=== PATIENT | male | born 1965 | race Caucasian/White ===

== ENCOUNTER 2022-07-27 07:31 | Outpatient (CLI) | payer BC, SELFPAY | END 2022-07-27 07:32 | disposition home or self-care (01) | LOC: NFLDREF 07-28 10:40 | PROVIDERS: PCP Family Medicine; Visit Provider Family Medicine | DX: E78.5 Hyperlipidemia, unspecified (principal); Z12.5 Encounter for screening for malignant neoplasm of prostate; R97.20 Elevated prostate specific antigen [PSA]; N40.0 Benign prostatic hyperplasia without lower urinary tract symptoms | CPT/HCPCS: 80053; 80061; 84153 ==

== ENCOUNTER 2022-09-29 06:17 | Day surgery (SDC) | payer BC, SELFPAY ==
[2022-09-29] VITALS (13 sets, daily range): BP systolic 118–149; BP diastolic 73–98; PULSE 59–81; RESP 12–16; TEMP 36.5–37.2; O2SAT 94–98; BMI 22.7
[2022-09-29] MEDS: LACTATED RINGERS 1000 ML 1,000 ML 100 ML IV ×2 (06:50→08:54)
[2022-09-29] MEDS: SODIUM CHLORIDE 0.9 % (FLUSH) 10 ML SYRINGE IVF (06:50)
[2022-09-29] MEDS: CEFAZOLIN 1 GM inj IVP (07:49)
--- NOTE | 2022-09-29 08:27 | W.ANESCHARGE ---
Anesthesia Charges Start Date/Time Anesthesia Start Date: 09/29/22 Anesthesia Start Time: 07:37 Stop Date/Time Anesthesia Stop Date: 09/29/22 Anesthesia Stop Time: 09:29
[2022-09-29] MEDS: BUPIVACAINE 0.25% 30 ML INJECTION (09:02)
--- NOTE | 2022-09-29 09:14 | PM.GSPRC ---
Operative Note Date of procedure: 09/29/22 Pre-op diagnosis: Bilateral inguinal hernia Post-op diagnosis: Same Type of Procedure: Laparoscopic bilateral inguinal hernia repair with mesh Indications: The patient is a 56-year-old male with a symptomatic left inguinal hernia. This has been interfering with his activities. He on exam in the office was found to have a right-sided hernia as well. We did discuss risks and benefits of repair of 1 or both sides and he elected to proceed with bilateral hernia repair. Procedure Description: After discussing the risks and benefits of the procedure, the patient signed informed consent.? The operative site was marked and the patient was brought to the operating room and placed on the operating table in supine position.? Care was taken to pad the patient's pressure points.?? The patient was then intubated by anesthesia.?? The operative site was then prepped and draped in the usual sterile fashion.? A time-out was then performed. A curvilinear incision was made below the umbilicus. Dissection was carried down to subcutaneous tissue until the anterior rectus fascia was encountered. This was incised off the midline on the left. The rectus muscle fibers were then retracted exposing the posterior fascia. A port with a dissecting balloon was then introduced into the pre-preperitoneal space. This was inflated under direct vision. The balloon was deflated, removed, and a 10 mm working port was placed. The space was insufflated and a 10 mm 30-degree scope was then advanced into the space. Two 5 mm ports were placed in the midline under direct vision. Dissection began on the left side. Aristides's ligament and the pubic bone were exposed medially. Following this, dissection was carried out laterally. A direct defect was noted. This was reduced completely. Attention was turned to the internal ring. The peritoneum was adherent to the cord structures however there was no hernia sac protruding through the internal ring. I did not identify a cord lipoma. The peritoneum was dissected free of the cord structures and dissection was taken out laterally to create a space for the mesh. A small hole in the peritoneum which was created during dissection was closed with clips. I then turned my attention to the right side. Similarly Aristides's ligament and pubic bone were exposed medially. I took my dissection laterally to the lateral pelvic sidewall. I encountered a small indirect hernia as well as a very small direct hernia. The direct hernia was reduced and the hernia sac was dissected off of the cord structures. A small tear in the hernia sac was closed with clips. Now having created sufficient space for mesh placement, I obtained a piece of large Bard 3DMax mesh for the right and left side. And positioned them just overlapping in the middle with the markers pointed medially. Tacks were then used to secure the mesh medially at Aristides's ligament as well as anteriorly and superiorly to this given the direct hernia. An additional tack was placed laterally with care to avoid the epigastric vessels and stay above the inguinal ligament. Once this was completed the sac was placed on top of the mesh and the preperitoneal space desufflated under direct vision to ensure the mesh laid flat. 10 mL of 0.5% Marcaine were instilled into the preperitoneal space through a port. The ports were removed. The fascia from the infraumbilical port was closed with 0 Vicryl. The skin incisions were closed with absorbable subcuticular suture. Sterile dressings were then applied. The scrotum was examined to ensure that both testicles were down. Instrument sponge and needle counts were correct at the end of the case. The patient was then woken and transported to the recovery area in stable condition. ? The patient tolerated the procedure well. Findings: Left-sided direct inguinal hernia Right-sided pantaloon hernia Implants: Bilateral large Bard 3DMax mesh Anesthesia: GETA Surgeon: Tami Montiel MD Estimated blood loss (mL): 5 Condition: stable Disposition: PACU
--- NOTE | 2022-09-29 09:31 | W.ANESCHARGE ---
Anesthesia Charges Start Date/Time Anesthesia Start Date: 09/29/22 Anesthesia Start Time: 07:37 Stop Date/Time Anesthesia Stop Date: 09/29/22 Anesthesia Stop Time: 09:29
--- NOTE | 2022-09-29 10:42 | SUR.PHASEII ---
Moderate bright red sanguinous drainage through second (center) incision on entry to Phase II. Rechecked and no change. Reinforced with additional gauze.
[2022-09-29] MEDS: HYDROCODONE-ACETAMIN 5-325 MG 1 TAB PO (11:31)
== END 2022-09-29 12:18 | disposition home or self-care (01) ==
PROVIDERS: PCP Family Medicine; Visit Provider Surgery
PROC: (CPT 49650; principal; 2022-09-29 07:30)
DX: K40.20 Bilateral inguinal hernia, without obstruction or gangrene, not specified as recurrent (principal)
CPT/HCPCS: 49650; 00830; 00860; A9270; C1781; J0330; J0690; J1100; J1885; J2250; J2405; J2704; J2710; J3010; J3490; J7120

== ENCOUNTER 2022-10-13 07:16 | Outpatient (CLI) | payer BC, SELFPAY | END 2022-10-13 07:17 | disposition home or self-care (01) | LOC: OP CLINIC 07:16 | PROVIDERS: PCP Family Medicine; Visit Provider Surgery | DX: Z12.11 Encounter for screening for malignant neoplasm of colon (principal); K63.5 Polyp of colon | CPT/HCPCS: 45385; 88305; J2250; J3010 ==

== ENCOUNTER 2023-01-18 08:15 | Outpatient (RCR) | payer BC, SELFPAY | END 2023-03-28 10:31 | disposition home or self-care (01) | PROVIDERS: PCP Family Medicine; Visit Provider Orthopaedic Surgery Sports Medicine | DX: M75.82 Other shoulder lesions, left shoulder (principal); G25.89 Other specified extrapyramidal and movement disorders; M25.512 Pain in left shoulder; M25.612 Stiffness of left shoulder, not elsewhere classified; Z51.89 Encounter for other specified aftercare | CPT/HCPCS: 97110; 97140; 97161 ==

== ENCOUNTER 2023-08-16 08:39 | Outpatient (CLI) | payer BC, SELFPAY ==
--- OUTSIDE RECORDS SUMMARY | 2023-08-17 12:57 | XMS_ITS | Clinical Summary ---
Author Name Unknown Organization [email or web address] Address [place], [place] [address] Care Team Providers Care Farm Management Supervisor Name Role Phone Pcp, No Primary Care Provider Unavailabl e Social History Tobacco Use Types Packs/Day Years Used Date Smoking Tobacco: Never Assessed Sex and Gender Information Value Date Recorded Sex Assigned at Not on file Gender Identity Not on file Sexual Orientation Not on file Plan of Treatment Health Maintenance Due Date Last Done Comments Tdap 1977 Depression screening for age 12+ 1978 HIV for age 15-65 1981 BMI (ht and wt on same day) for age 18+ 1984 Hepatitis C screening for age 18-79 1984 Tetanus booster 1986 Colonoscopy through age 75 11/29/2011 Lipids for age 45-75 11/29/2011 Zoster (shingles) series for age 50+ (1 of 2) 2016 COVID-19 vaccine series (2022-24 season) 2022 03/08/2022, 03/09/2021, 08/18/2020, Additional history exists Influenza for age 50-64 12/17/2023 Pneumococcal series for age 6-64 Aged Out No longer eligible based on patient's age to complete this topic Care Teams Farm Management Supervisor Relationship Specialty Start Date End Date Pcp, No . PCP - General 09/27/22
== END 2023-08-16 08:40 | disposition home or self-care (01) ==
LOC: NFLDREF 08-17 12:53
PROVIDERS: PCP Family Medicine; Referring Provider Family Medicine; Visit Provider Family Medicine
DX: E78.5 Hyperlipidemia, unspecified (principal); R97.20 Elevated prostate specific antigen [PSA]; Z12.5 Encounter for screening for malignant neoplasm of prostate; Z13.228 Encounter for screening for other metabolic disorders
CPT/HCPCS: 80053; 80061; G0103

== ENCOUNTER 2023-10-04 09:00 | Outpatient (RCR) | payer BC, SELFPAY | END 2024-01-08 08:45 | disposition home or self-care (01) | PROVIDERS: PCP Family Medicine; Visit Provider Family Medicine | DX: M25.812 Other specified joint disorders, left shoulder (principal); Z51.89 Encounter for other specified aftercare | CPT/HCPCS: 97110; 97140; 97161 ==

== ENCOUNTER 2024-05-07 08:15 | Outpatient (CLI) | payer BC, SELFPAY ==
--- NOTE | 2024-05-07 08:15 | CRLHL7_ITS ---
For Patients: As a result of the Century Cures Act, medical imaging exams and procedure reports are released immediately into your electronic medical record. You may view this report before your referring provider. If you have questions, please contact your health care provider. INDICATION: Localized swelling, mass, inferior chest. TECHNIQUE: Focused ultrasound of the patient`s lump in the inferior right chest wall. Grayscale and color Doppler images. FINDINGS: Ill-defined 4.1 x 1.3 x 2.4 cm mass in the inferior right chest corresponding to the patient`s lump. This appears to be associated with the skin. Tissue is heterogeneous occluding hyperechoic elements and possibly some edema. Increased color flow within the area. Findings are nonspecific but this appears to be at least partially epidermal process. No drainable fluid collection. Impression: Nonspecific, hyperemic and somewhat edematous mass associated with the skin and immediate subcutaneous tissues. Dictated by Angelo John MD @ 05/07/2024 1:40:06 PM (Electronically Signed)
== END 2024-05-07 08:16 | disposition home or self-care (01) ==
LOC: US 08:16
PROVIDERS: PCP Family Medicine; Visit Provider Surgery
DX: R22.9 Localized swelling, mass and lump, unspecified (principal)
CPT/HCPCS: 76604

== ENCOUNTER 2024-06-06 06:13 | Day surgery (SDC) | payer BC, SELFPAY ==
--- OUTSIDE RECORDS SUMMARY | 2024-06-06 06:16 | XMS_ITS | Clinical Summary ---
Author Organization [facility] Address [address] [place] [id number] Care Team Providers Care Bit Shaver Name Role Phone Pcp, No Primary Care Provider Unavailabl e Social History Tobacco Use Types Packs/Day Years Used Date Smoking Tobacco: Never Assessed Sex and Gender Information Value Date Recorded Sex Assigned at Not on file Legal Sex Male 5:44 AM [employer] Gender Identity Not on file Sexual Orientation Not on file Plan of Treatment Health Maintenance Due Date Last Done Comments Tdap 1977 Depression screening for age 12+ 1978 HIV for age 15-65 1981 BMI (ht and wt on same day) for age 18+ 1984 Hepatitis C screening for ag e 18-79 1984 Tetanus booster 1986 Colonoscopy through age 75 11/29/2011 Lipids for age 45-75 11/29/2011 Pneumococcal series for age 50+ (1 of 1 - PCV) 2016 Zoster (shingles) series for age 50+ (1 of 2) 2016 COVID-19 vaccine series ( season) 2023 03/08/2022, 03/09/2021, 08/18/2020, Additional history exists Influenza for age 50-64 12/17/2023 Insurance [facility] Care Teams Bit Shaver Relationship Specialty Start Date End Date Pcp, No . PCP - General 09/27/22
--- OUTSIDE RECORDS SUMMARY | 2024-06-06 06:16 | XMS_ITS | Data Portability ---
Author Organization [place] [facility] Address [address] [place] [address] Assessment No assessment recorded. Plan of Treatment Reminders Order Date Submit Date Provider Last Modified By Organization Details Last Modified Time Details Appointments None recorded. Lab urinalysis , dipstick 2022 023 [facility], [address], [address], [place], [address], 3 12:13:55 Referral None recorded. Procedures bladder scan (PROC) 2022 023 [facility], [address], [address], [place], [address], 3 12:13:16 Surgeries None recorded. Imaging None recorded. Medication Orders None recorded. Patient TargetsNo targets recorded. Patient Instructions Encounter Date Encounter Id Patient Instructions Last Modified By Organization Details Last Modified Time 09/01/2022 [id number] will set up for MRI prostate and call with report. [email or web address] Not available 09/01/2022 11:24:59 Reason for Referral None Reported. Results Created Date Observation Date Name Description Value Unit Range Abnormal Flag Note LastModifiedBy Organization Detail LastModifiedTime 09/02/19 23 09/01/2022 urina lysis , dipst ick Bilirubin-St atus Small Not Available [facility] [address], [place], [address], 08/30/2022 16:09:42 09/02/19 23 09/01/2022 urina lysis , dipst ick Ketones-Stat us 15 Not Available [address], [place], [address], 08/30/2022 16:09:42 09/02/19 23 09/01/2022 urina lysis , dipst ick Sp [place]-Stat us >=1.03 0 Not Available [address], [place], [address], 08/30/2022 16:09:42 09/02/19 23 09/01/2022 urina lysis , dipst ick Protein-Stat us >=9.0 Not Available [address], [place], [address], 08/30/2022 16:09:42 09/02/19 23 09/01/2022 urina lysis , dipst ick Blood-Status Negati ve Not Available [address], [place], [address], 08/30/2022 16:09:42 09/02/19 23 09/01/2022 urina lysis , dipst ick Nitrates-Sta tus negati ve Not Available [address], [place], [address], 08/30/2022 16:09:42 09/02/19 23 09/01/2022 urina lysis , dipst ick Leuko-Status Negati ve Not Available [address], [place], [address], 08/30/2022 16:09:42 09/02/19 23 09/01/2022 urina lysis , dipst ick pH-Status 5.5 Not Available [facility] [address], [place], [address], 08/30/2022 16:09:42 09/02/19 23 09/01/2022 urina lysis , dipst ick Glucose-Stat us Negati ve Not Available [facility] [address], [place], [address], 08/30/2022 16:09:42 09/02/19 23 09/01/2022 bladd er scan (PROC ) Volume (in mL) 0 Not Available [facility] [address], [place], [address], 08/30/2022 16:09:49 10/01/19 23 09/28/2022 MRI, prost ate, w/wo contr ast No observ ation record ed. [email or web address] [facility] [address], [place], [address], 09/30/2022 12:25:15 Result Notes None recorded. Problems Name Problem SNOMED Code Status Onset Date Resolution Date Notes Provider Name and Address Organization Details Recorded Time Prostate specific antigen above reference range [id number] Active 023 Darin Martinez MD [address], [place], [address], [place] [facility] 3 11:08:28 Problem Notes None recorded. Procedures Surgical History Date Name Laterality Status Provider Name and Address Organization Details Recorded Time Bladder Scan completed Darin Martinez MD [address], [place], [address], [facility] 09/01/2022 11:15:26 Imaging Results Imaging Date Name Status LastModified by Organiz ation Details LastModified Time 09/28/2022 MRI, prostate, w/wo contrast completed [id number] [facility] [address] [address] [facility] [place], [address], 09/30/2022 12:25:15 Procedure Notes None recorded. Medical Equipment None Reported. Allergies Allergen ID Allergen Name Allergen Category Reaction Reaction Severity Criticality Documentation Date Start Date Code Code System Note Provider Name and Address Organization Details Recorded Time 020138 Joselito-Tab medicatio n Not available Not available Not available 10/03/2019201160 9 RxNorm Not Available Not Available Not Available [id number] azithromy humberto medicatio n Not available Not available Not available 09/01/2022 23361 RxNorm Not Available Not Available Not Available Medications Name Sig Start Date Stop Date Status Note LastModified by Organization Details LastModified Time amlodipine 5 mg tablet TAKE 1 TABLET BY MOUTH DAILY active Not Available Not Available No t Available albuterol sulfate HFA 90 mcg/actuati on aerosol inhaler INHALE 2 PUFFS BY MOUTH EVERY 4 TO 6 HOURS NEEDED FOR SHORTNESS OF BREATH OR WHEEZING active Not Available Not Available No t Available finasteride 5 mg tablet TAKE 1 TABLET BY MOUTH EVERY DAY active Not Available Not Available No t Available Gavilyte-C 240 gram-22.72 gram-6.72 gram-5.84 gram oral solution TAKE 240ML BY MOUTH EVERY 10 MINUTES UNTIL FECAL EFFLUENT IS CLEAR 09/01 completed Not Available Not Available Not Available Vitals Date Recorded Body height Body mass index (BMI) Body weight Provider Name and Address Organization Details Last Updated DateTime 09/01/2022 177.8 cm 22.2 kg/m2 97028.82 g Darin Martinez MD [address] [place] [address], [address], [facility] 09/01/2022 11:13:16 Social History Question Answer Notes LastModified by Organizat ion Details LastModified Time Tobacco Smoking Status Never Smoker Darin Martinez MD [address] [place] [address],[address], [address], [facility] 09/01/2022 11:08:36 What Is Your Level Of Alcohol Consumption? Occasional [email or web address] Information not available 09/01/2022 What Is Your Level Of Caffeine Consumption? Occasional [email or web address] Information not available 09/01/2022 What Was The Date Of Your Most Recent Tobacco Screening? 09/01/2022 [email or web address] Information not available 09/01/2022 Sex: Unknown Functional Status None recorded. Mental Status None recorded. Family History Relationship Description Onset Age of this Age Resolved Age Notes LastModified by Organization Details LastModified Time Mother Family history of malignant neoplasm [email or web address] Not available 09/01 11:14:22 Paternal Grandfather Family history of malignant neoplasm [email or web address] Not available 09/01 11:14:22 Medical History Condition Response Other N High Blood Pressure Y Kidney Stones N Depression N Sexually Transmitted Infection N Cancer N Bleeding Disorder N Lung Disease N GERD/Acid Reflux N High Cholesterol N Diabetes N Heart Disease N Past Encounters Encounter ID Performer Location Encounter Start Date Encounter Closed Date Diagnosis/Indication Diagnosis SNOMED-CT Code Diagnosis ICD10 Code Diagnosis Note [id number] Darin Martinez MD [facility] [address] [place] [address] 09/01/2022 11:00:36 09/08/2022 12:55:50 Prostate specific antigen above reference range [id number] R97.20 Health Concerns Section Related Observation LastModified by Organization Detai ls LastModified Time None Recorded Concern Status LastModified by Organization Details LastModified Time None Recorded Advance Directives Directive None Recorded Payers Encounter Date Sequence Insurance Name Policy Number Policy Raines Covered Member ID Raines Member ID Guarantor Name 09/01/2022 1 [place] [id number] Giorgio Pino [id number] Giorgio Pino Notes Date Note Type Note Provider Name and Address Organization Details Recorded Time 09/01/2022 text/html seeing for elevated PSA, 4.21 last months, prior PSA in 2017 was normal. previously on finasteride for about a year a decade ago and 5 years ago. started having some hesitancy and slower stream again and so started finasteride with PCP on that visit. UA clear and PVR 0ml today. family hx maternal uncle might have had CaP. Darin Martinez MD [address], [place], [address], [facility] 09/01/2022 11:27:42
[2024-06-06 06:25] VITALS: BMI 22.9
[2024-06-06] MEDS: LACTATED RINGERS 500 ML 500 ML 100 ML IV (06:45)
[2024-06-06 06:56] VITALS: BP 149/91; PULSE 80; RESP 16; TEMP 36.6; O2SAT 97
[2024-06-06] MEDS: SODIUM CHLORIDE 0.9 % (FLUSH) 10 ML SYRINGE IVF (06:57)
--- NOTE | 2024-06-06 07:16 | W.PM.H&PU ---
History & Physical Update History & Physical Update H&P Reviewed and patient assessed: No changes noted
[2024-06-06] MEDS: CEFAZOLIN 2 GM INJ IVP (07:43)
[2024-06-06] MEDS: BUPIVACAINE 0.25% 30 ML INJECTION (08:02)
[2024-06-06] MEDS: LIDOCAINE 1%-EPI 1:100,000 20 ML INFILTRATI (08:02)
--- NOTE | 2024-06-06 08:20 | P.GSOP_ITS ---
Operative Note Date of procedure: 06/06/24 Pre-op diagnosis: Subcutaneous chest mass Post-op diagnosis: Same Type of Procedure: Wide local excision subcutaneous chest mass Indications: Patient is a 58-year-old male who presented to clinic with an enlarging lesion of his right chest wall. Clinical characteristics are consistent with a subc utaneous mass. Different treatment options were reviewed with recommendations for wide local excision. Risks and benefits of the surgery were discussed at length. Risks included, but were not limited to: Bleeding, infection, risk of damage to surrounding structures, risk of wound dehiscence and possible need for additional procedures. All questions and concerns were addressed with patient agreeing to proceed. Procedure Description: After discussing the risks and benefits of the procedure, the patient signed informed consent.? The operative site was marked and the patient was brought to the operating room and placed on the operating table in supine position.? Care was taken to pad the patient's pressure points.?? The patient was then given sedation by anesthesia.?? The operative site was then prepped and draped in the usual sterile fashion.? A time-out was then performed. The area was anesthetized with 0.25% Marcaine. An ill-defined 4 cm mass within the patient's subcutaneous tissue was seen on the inferior right chest wall. An elliptical incision was made around the mass to encompass it entirely as well as a rim of healthy tissue. Dissection was carried down on to underlying muscle fascia, which was included in the specimen. The mass was removed in its entirety and marked with a short stitch superior and long stitch laterally. An area of firmness was appreciated within the wound bed, this was also removed with cautery and sent with the specimen. Hemostasis was assured with electrocautery. The incision was undermined approximately 2 cm circumferentially. The elliptical incision was then closed in layers with several interrupted 2 0 Vicryl and 3-0 Vicryl. Skin was closed with a running 4-0 Monocryl stitch. Steri-Strips were applied. The resulting incision measured 10.5 cm in length. Sterile dressings were then applied. ? The patient was then woken and transported to the recovery area in stable condition. ? The patient tolerated the procedure well. Findings: Ill-defined subcutaneous mass of the inferior right chest wall, 4.1 x 1.3 x 2.4 cm in size. Anesthesia: MAC and local Surgeon: Brandi Hill MD Estimated blood loss (mL): 5 Additional Specimen Information: Chest wall mass Condition: stable Disposition: same day
[2024-06-06 08:23] VITALS: BP 106/81; PULSE 78; RESP 16; TEMP 36.4; O2SAT 99
--- NOTE | 2024-06-06 08:25 | P.ANES_ITS ---
Anesthesia Charges Start Date/Time Anesthesia Start Date: 06/06/24 Anesthesia Start Time: 07:32 Stop Date/Time Anesthesia Stop Date: 06/06/24 Anesthesia Stop Time: 08:26 Coding CPT Codes CPT Codes: ANESTH SKIN EXT/PER/ATRUNK - 86808 ([id number]) P2 - PATIENT W/MILD SYST DISEASE, QK - SKI TOW OPERATOR 2-4 CNCRNT ANES PROC, QX - DAIRY CONSULTANT SVC W/ MD MED DIRECTION
--- NOTE | 2024-06-06 08:25 | W.ANESCHARGE ---
Anesthesia Charges Start Date/Time Anesthesia Start Date: 06/06/24 Anesthesia Start Time: 07:32 Stop Date/Time Anesthesia Stop Date: 06/06/24 Anesthesia Stop Time: 08:26 Coding CPT Codes CPT Codes: ANESTH SKIN EXT/PER/ATRUNK - 59075 ([id number]) P2 - PATIENT W/MILD SYST DISEASE, QK - SPRAY GUN REPAIRER 2-4 CNCRNT ANES PROC, QX - PHARMACY MANAGER SVC W/ MD MED DIRECTION
[2024-06-06 08:30] VITALS: BP 106/81; PULSE 71; RESP 16; O2SAT 98
--- NOTE | 2024-06-06 08:40 | SUR.PHASEII ---
Dr. Hill here to see pt.
[2024-06-06 08:45] VITALS: BP 121/67; PULSE 67; RESP 16
--- NOTE | 2024-06-06 09:05 | P.ANES_ITS ---
Anesthesia Charges Start Date/Time Anesthesia Start Date: 06/06/24 Anesthesia Start Time: 07:32 Stop Date/Time Anesthesia Stop Date: 06/06/24 Anesthesia Stop Time: 08:26 Coding CPT Codes CPT Codes: ANESTH SKIN EXT/PER/ATRUNK - 16673 ([id number]) QK - SHANK TURNER 2-4 CNCRNT ANES PROC, QX - TAILOR APPRENTICE SVC W/ MD MED DIRECTION, P2 - PATIENT W/MILD SYST DISEASE
--- NOTE | 2024-06-06 09:05 | W.ANESCHARGE ---
Anesthesia Charges Start Date/Time Anesthesia Start Date: 06/06/24 Anesthesia Start Time: 07:32 Stop Date/Time Anesthesia Stop Date: 06/06/24 Anesthesia Stop Time: 08:26 Coding CPT Codes CPT Codes: ANESTH SKIN EXT/PER/ATRUNK - 78739 ([id number]) QK - AUTO AIR CONDITIONING INSTALLER 2-4 CNCRNT ANES PROC, QX - COMBINED RAIL OPERATOR SVC W/ MD MED DIRECTION, P2 - PATIENT W/MILD SYST DISEASE
[2024-06-06 09:15] VITALS: BP 127/85; PULSE 74; RESP 16; O2SAT 99
== END 2024-06-06 09:17 | disposition home or self-care (01) ==
PROVIDERS: PCP Family Medicine; Visit Provider Surgery
PROC: (CPT 11406; principal; 2024-06-06 07:30)
DX: C44.599 Other specified malignant neoplasm of skin of other part of trunk (principal); R22.2 Localized swelling, mass and lump, trunk
CPT/HCPCS: 11406; 12034; 00400; 88305; J0665; J0690; J1100; J1885; J2250; J2405; J2704; J3010; J7120

== ENCOUNTER 2024-12-12 08:40 | Outpatient (CLI) | payer BC, SELFPAY | END 2024-12-12 08:41 | disposition home or self-care (01) | LOC: NFLDREF 12-14 23:24 | PROVIDERS: PCP Family Medicine; Referring Provider Family Medicine; Visit Provider Family Medicine | DX: E78.5 Hyperlipidemia, unspecified (principal); N40.0 Benign prostatic hyperplasia without lower urinary tract symptoms; R97.20 Elevated prostate specific antigen [PSA]; Z12.5 Encounter for screening for malignant neoplasm of prostate | CPT/HCPCS: 80053; 80061; G0103 ==

== ENCOUNTER 2024-12-16 17:11 | Emergency (ER) | payer BC, SELFPAY ==
--- OUTSIDE RECORDS SUMMARY | 2024-12-03 10:30 | XMS_ITS | Encounter Summary ---
Author Organization [facility] Address [address] [place] [phone] Care Team Providers Care Stockroom Helper Name Role Phone Elsewhere, Pcp Primary Care Provider Unavailabl e Reason for Referral * Outpatient (Routine) - Authorized Specialty Diagnoses / Procedures Referred By Jesus gonzales Referred To Contact Dermatology Diagnoses Dermatofibrosarcoma Protuberans Ga Ballard M.D. [address] [place] [phone] Phone: tel: fax: [facility] Referral ID Status Reason Start Date Expiration Date V isits Requested Visits Authorized [id number] Authorized 12/03/2024 06/04/2026 1 1 * Outpatient (Routine) - Authorized Specialty Diagnoses / Procedures Referred By Jesus gonzales Referred To Contact Orthopedic Surgery Ga Ballard M.D. [address] [place] [phone] Phone: tel: fax: [facility] Referral ID Status Reason Start Date Expiration Date V isits Requested Visits Authorized [id number] Authorized 12/03/2024 06/04/2026 1 1 Reason for Visit * Outpatient (Routine) - Closed Specialty Diagnoses / Procedures Referred By Jesus gonzales Referred To Contact Orthopedic Surgery Anais Rocha, DEMETRIUS, C.N.P. [address] [place] [phone] Phone: tel: fax: Ga Ballard M.D. [address] [place] [phone] Phone: tel: fax: Referral ID Status Reason Start Date Expiration Date Visits Re quested Visits Authorized [id number] Closed 08/29/2024 02/28/2026 1 1 Encounter Details Date Type Department Care Team (Latest Contact Info) Description 12/03/2024 10:30 AM CDT Office Visit Department of Orthopedic Surgery in [place], [place] [address] [place] [phone] Ga Ballard M.D. [address] [place] [address] [phone] Dermatofibrosarcoma Protuberans (Primary Dx) Social History Tobacco Use Types Packs/Day Years Used Date Smoking Tobacco: Never Smokeless Tobacco: Never Alcohol Use Standard Drinks/Week Comments Yes 15 (1 standard drink = 0.6 oz pu re alcohol) [facility] Utilities Answer Date Recorded In the past 12 months has [facility] [employer], gas, oil, or water [employer] threatened to shut off services in your home? No 08/31/2024 Humiliation, Afraid, Rape, and Kick questionnair e Answer Date Recorded Within the last year, have y ou been afraid of your partner or ex-partner? No 08/31/2024 Within the last year, have y ou been humiliated or emotionally abused in other ways by your partner or ex-partner? No Within the last year, have y ou been kicked, hit, slapped, or otherwise physically hurt by your partner or ex-partner? No 08/31/2024 Within the last year, have y ou been raped or forced to have any kind of sexual activity by your partner or ex-partner? No 08/31/2024 Hunger Vital Sign Answer Date Recorded Within the past 12 months, y ou worried that your food would run out before you got the money to buy more. Never true 09/01/19 25 Within the past 12 months, t he food you bought just didn't last and you didn't have money to get more. Never true 08/31/2024 PRAPARE - Transportation Answer Date Re corded In the past 12 months, has l ack of transportation kept you from medical appointments or from getting medications? No 08/15 In the past 12 months, has l ack of transportation kept you from meetings, work, or from getting things needed for daily living? No 08/31/2024 Housing Stability Answer Date Recorded What is your living situation today? 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 - 12/03/2024 10:30 AM CDT CHIEF COMPLAINT / REASON FOR VISIT Giorgio Pino is a 59 y.o. male who presents for follow-up of No chief complaint on file. andis under the care of ELSEWHERE, PCP. HISTORY OF PRESENT ILLNESS Mr. 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 All in all, he is making recovery in his progress. He did have some delayed healing which required an abdominoplasty, however, he is still doing activities that he wants to be doing, however we will have some pain afterwards which he is managing His surgical history is notable for: Surgical History[1] REVIEW OF SYSTEMS Review of Systems OBJECTIVE Vital Signs vitals were not taken for this visit. PHYSICAL EXAM Ortho Exam He is alert and orientated. There is no palpable signs of recurrence. His incisions all well healed. There is no nodularity. DIAGNOSTICS INR Date Value Ref Range Status 08/21/2024 1.0 0.9 - 1.1 Final Comment: ----ADDITIONAL INFORMATION---- Standard intensity warfarin therapeutic range: 2.0 to 3.0 High intensity warfarin therapeutic range: 2.5 to 3.5 ASSESSMENT / PLAN At this time Mr. Pino he is making progress in his recovery. I stated that he should continue to do things however not force things as best he can. He is trying to do as much as he can however, within the confines of his pain. He will keep an eye on things in terms of examined he for any new nodularity. We will place orders to see him back in our clinic for follow-up, in addition at that time, also have a appointment with dermatology for skin checks. He is in agreement with this plan [1] Past Surgical History: Procedure Laterality Date DEBRIDEMENT AND IRRIGATION - ABDOMINAL WOUND N/A 09/20/2024 Procedure: DEBRIDEMENT, IRRIGATION ABDOMINAL WOUND WOUND, PRIMARY WOUND CLOSURE; Surgeon: Viviana Quintana M.B.B.S.; Location: [facility] HERNIA REPAIR 09/2022 RECONSTRUCTION CHEST WALL Right 08/30/2024 Procedure: CHEST WALL RECONSTRUCTION WITH REVERSE ABDOMINOPLASTY.; Surgeon: Viviana Quintana M.B.B.S.; Location: [facility] OR WIDE LOCAL EXCISION - CLOSURE FLAP Right 08/30/2024 Procedure: WIDE LOCAL EXCISION CHEST.; Surgeon: Ga Ballard M.D.; Location: [facility] OR documented in this encounter Plan of Treatment Scheduled Referrals Name Type Priority Associated Diagnoses Orde r Schedule Orthopedic Surgery office visit (clinic) Outpatient Referral Routine Expected: 04/04/2025, Expires: 03/05/2026 Dermatology - Skin check consult (clinic) Outpatient Referral Routine Dermatofibrosarcoma Protuberans Expected: 04/04/2025, Expires: 03/05/2026 documented as of this encounter Visit Diagnoses Diagnosis Dermatofibrosarcoma Protuberans- Primary documented in this encounter Care Teams Stockroom Helper Relationship Specialty Start Date End Date Elsewhere, Pcp PCP - General Internal Medicine 08/30/24 documented as of this encounter
--- NOTE | 2024-12-16 | CRLHL7_ITS ---
For Patients: As a result of the Century Cures Act, medical imaging exams and procedure reports are released immediately into your electronic medical record. You may view this report before your referring provider. If you have questions, please contact your health care provider. INDICATION: CODE BLUE TECHNIQUE: Chest 1 view(s) COMPARISON: Chest radiograph dated 08/14/2015. FINDINGS/IMPRESSION: Endotracheal tube tip is approximately 4.6 cm above the abram. Diffuse airspace opacities throughout the lungs bilaterally. Cardiomediastinal silhouette and pulmonary vasculature are normal. No significant layering pleural effusion. No definite pneumothorax identified. Dictated by Seb French MD @ 12/16/2024 6:32:01 PM (Electronically Signed)
[2024-12-16] MEDS: EPINEPHrine 0.1 MG/ML SYRINGE 1 MG IVP ×4 (17:11→17:25)
--- OUTSIDE RECORDS SUMMARY | 2024-12-16 17:13 | XMS_ITS | Clinical Summary ---
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 Gender Identity Not on file Sexual Orientation Not on file Plan of Treatment Health Maintenance Due Date Last Done Comments Tetanus booster 1977 Depression screening for age 12+ 1978 HIV for age 15-65 1981 BMI (ht and wt on same day) for age 18+ 1984 Hepatitis C screening for ag e 18-79 1984 Hepatitis B series for 19+ ( 1 of 3 - 19+ 3-dose series) 1985 Colonoscopy through age 75 11/29/2011 Lipids for age 45-75 11/29/2011 Pneumococcal series for age 50+ (1 of 1 - PCV) 2016 Zoster (shingles) series for age 50+ (1 of 2) 2016 COVID-19 vaccine series (2023- season) 2023 03/08/2022, 03/09/2021, 08/18/2020, Additional history exists Influenza Vaccine (#1) 2024 RSV vaccine for adults or (1 - 1-dose 75+ series) 2041 Insurance [facility] Care Teams Authorizer Relationship Specialty Start Date End Date Pcp, No . PCP - General 09/27/22
--- OUTSIDE RECORDS SUMMARY | 2024-12-16 17:13 | XMS_ITS | Clinical Summary ---
Author Organization [facility] Address [address] [place] [address] Care Team Providers Care Director Organizational Name Role Phone Elsewhere, Pcp Primary Care Provider Unavailabl e Source Comments Patient records contain information from all sites at [facility]. For routine questions regarding patient records, call [phone] during business hours, M-F 8:00 AM - 5:00 PM Central Time. Record requests for emergency care only can be directed to [phone] at any time.[facility] Allergies Active Allergy Reactions Criticality Noted Date Comments Azithromycin Other (see comments) 08/20/2024 Medications amLODIPine (Norvasc) 5 mg tablet Take 5 mg by mouth every morning. 08/17/19 24 Active finasteride (Proscar) 5 mg tablet Take 5 mg by mouth every morning. 08/17/19 24 Active albuterol 90 mcg/actuation inhaler Inhale 2 puffs every 4 (four) hours as needed for shortness of breath. Active ibuprofen 200 mg capsule Take 400 mg by mouth every 6 (six) hours as needed for pain. 08/04/19 23 Active acetaminophen (TylenoL) 500 mg tablet Take 2 tablets (1,000 mg total) by mouth every 6 (six) hours. 09/03/19 25 Active Additional Information Patient taking differently:1,000 mg oralEvery 6 hours PRN, pain, Reported on 12/03/2024 enoxaparin (Lovenox) 40 mg/0.4 mL injection Inject 0.4 mL (40 mg total) under the skin daily. 16.8 mL 05/19/202 5 5:05 PM CDT 09/04/19 025 Discontinued sennosides-doc usate sodium (Senokot-S) 8.6-50 mg per tablet Take 1 tablet by mouth 2 (two) times a day. 09/03/19 025 Discontinued traMADoL (Ultram) 50 mg tabletIndicati ons:Acute Pain Exception Take 1 tablet (50 mg total) by mouth every 6 (six) hours as needed for moderate pain or score 4-6 of 10 20 tablet 5 5:05 PM CDT 09/03/19 025 Discontinued oxyCODONE (Roxicodone) 5 mg immediate release tabletIndicati ons:Acute Pain Take 1 tablet (5 mg total) by mouth every 4 (four) hours as needed for pain Indication: Acute Pain. 8 tablet 5 11:03 AM CDT 09/21/19 025 Discontinued Active Problems Problem Noted Date Diagnosed Date Dehiscence Wound Subsequent 09/21/2024 Dehiscence Wound Initial 09/18/2024 Preanesthetic Medical Exam 08/22/2024 Benign Prostatic Hyperplasia Without Obstruction 08/21/2024 Dermatofibrosarcoma Protuberans 08/06/2024 Hypertension Essential Primary 08/06/2024 Asthma Exercise Induced Bronchospasm 08/06/2024 Encounters Date Type Department Care Team Description 12/03/2024 10:30 AM CDT Office Visit Department of Orthopedic Surgery in [place], [place] [address] [place] [phone] Ga Ballard M.D. Dermatofibrosarcoma Protuberans (Primary Dx) 10/16/2024 10:30 AM CDT Office Visit Division of Plastic Surgery in [place], [place] [address] [place] [phone] Vianey Feliz APRN, C.N.P., D.N.P. Follow Up Examination Postoperative Visit (Primary Dx) 10/16/2024 Ancillary Procedure Department of Plastic and Reconstructive Surgery 10/10/2024 7:51 AM CDT - 10/10/2024 10:22 PM CDT Hospital Encounter Department of Orthopedic Surgery in [place], [place] [address] [place] [phone] Enrique Dumas M.D. Gibreel, Waleed, M.B.BJimySJimy Dehiscence Wound Subsequent Discharge Disposition: Home or Self Care 09/25/2024 7:30 AM CDT - 09/25/2024 4:39 PM CDT Hospital Encounter Department of Orthopedic Surgery in [place], [place] [address] [place] [phone] Enrique Dumas M.D. Gibreel, Waleed, M.B.B.SJimy Dehiscence Wound Subsequent (Primary Dx); Dehiscence Wound Initial Discharge Disposition: Home or Self Care 09/25/2024 Ancillary Procedure Department of Plastic and Reconstructive Surgery 09/23/2024 Clinical Communication Division of Plastic Surgery in [place], [place] [address] [place] [phone] Viviana Quintana M.B.B.SJimy 09/20/2024 5:15 PM CDT Ancillary Procedure Department of Plastic and Reconstructive Surgery 09/20/2024 2:38 PM CDT Anesthesia Event [facility] [address] [place] [phone] Kirsty Rose D.O. 09/20/2024 12:48 PM CDT - 09/20/2024 3:03 PM CDT Surgery [facility] [address] [place] [phone] Viviana Quintana M.B.B.SJimy DEBRIDEMENT, IRRIGATION ABDOMINAL WOUND WOUND, PRIMARY WOUND CLOSURE 09/20/2024 10:09 AM CDT - 09/21/2024 11:05 AM CDT Hospital Encounter [facility], Ninth Floor [address] [place] [phone] Viviana Quintana M.B.B.SJimy Dehiscence Wound Initial (Primary Dx) Discharge Disposition: Home or Self Care 09/20/2024 Ancillary Procedure Department of Plastic and Reconstructive Surgery 09/18/2024 7:48 AM CDT - 09/18/2024 11:59 PM CDT Hospital Encounter Department of Orthopedic Surgery in [place], [place] [address] [place] [phone] Viviana Quintana M.B.B.S. Dermatofibrosarcoma Protuberans Discharge Disposition: Home or Self Care 09/18/2024 Orders Only Department of Orthopedic Surgery in [place], [place] [address] [place] [phone] Anais Rocha APRN, C.N.P. from Last 3 Months Social History Tobacco Use Types Packs/Day Years Used Date Smoking Tobacco: Never Smokeless Tobacco: Never Alcohol Use Standard Drinks/Week Comments Yes 15 (1 standard drink = 0.6 oz pu re alcohol) [facility] Utilities Answer Date Recorded In the past 12 months has e [email or web address], gas, oil, or water [employer] threatened to shut off services in your [...] your living situation today? 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 Gender Identity Male 07/21/2024 11:01 PM CDT Sexual Orientation Straight 07/21/2024 11 :01 PM CDT Last Filed Vital Signs Vital Sign Reading Time Taken Comments Blood Pressure 125/80 09/21/2024 11:00 AM CDT Pulse 88 09/21/2024 11:00 AM CDT Temperature 36.9 C (98.4 F) 09/21/2024 11:00 AM CDT Respiratory Rate 15 09/21/2024 11:00 AM CDT Oxygen Saturation 97% 09/21/2024 11:00 AM CDT Inhaled Oxygen Concentration - - Weight 70.9 kg (156 lb 4.9 oz) 09/20/2024 10:43 AM CDT Height 177.8 cm (5' 10) 09/20/2024 10:43 AM CDT Body Mass Index 22.43 09/20/2024 10:43 AM CDT Plan of Treatment Health Maintenance Due Date Last Done Comments CT Colonography 1966 Cologuard 1966 Colonoscopy 1966 Colorectal Cancer Screening 1966 FIT 1966 HIV Screening 1966 Hepatitis C Screening 1966 Lipid (Cholesterol) Screening 1966 Office Visit for Blood Pressure Check / Re-check 1966 Hepatitis B Vaccines (1 of 3 - 19+ 3-dose series) 1985 Pneumococcal vaccine (50+ years) (1 of 2 - PCV) 1985 Depression Screening (Annual PHQ-2) 04/17/2024 Influenza Vaccine (#1) 2024 , 03/08/2022, 03/03/2021, Additional history exists Fasting Glucose for Diabetes Screening 09/03/2027 09/02/2024, 09/01/2024, 08/31/2024, Additional history exists DTaP,Tdap,and Td Vaccines (2 - Td or Tdap) 08/03/2032 08/03/2022, 03/29/2005 Zoster Vaccines Completed 08/03/2022, 08/03/2021 COVID-19 Vaccine Completed 03/27/2024, 06/2023, 03/08/2022, Additional history exists IPV Vaccines Aged Out No longer eligi ble based on patient's age to complete this topic Medical Devices Implanted Type Area Winemaker Device Identifier Shelf Expiration Date Model / Serial / Lot Clp Hrzn Ti 6 Clp Lg Orng - [id number] Implanted:Qt y: 1 on 08/30/2024 by Ga Ballard M.D. at [facility] Hardware e.g. pins/screws /rods Right: Chest Wall [employer] [id number] 04/24/2029 [id number] / / [id number] Clp Hrzn Ti 6 Clp Lg Orng - [id number] Implanted:Qt y: 1 on 08/30/2024 by Ga Ballard M.D. at [facility] Hardware e.g. pins/screws /rods Right: Chest Wall [employer] [id number] 03/04/2029 [id number] / / [id number] Clp Apr Lgs Intnl Sm 9.0 - [id number] Implanted:Qt y: 1 on 09/20/2024 by Viviana Quintana M.B.BJimyS. at [facility] Hardware e.g. 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 Narrative [facility] - 10/16/2024 12:24 PM CDT This order has been created and auto-finalized to support the import of images acquired without order. The clinical documentation to support these images can be found on the encounter that produced images. us Provider Not In System IMG NON RAD IMAGING PROCE DURES Final Result [facility] NA * LDA ANE ENDOTRACHEAL AIRWAY (09/20/2024 2:49 PM CDT) Narrative Conrado Mei APRN, CRNA - 09/20/2024 2:49 PM CDT Conrado Mei APRN, CRNA 09/20/2024 3:03 PM Airway Date/Time: 09/20/2024 2:49 PM Performed by: Conrado Mei APRN, CRNA Authorized by: Kirsty Rose D.O. Patient location during procedure: OR / Procedure Area PROCEDURE DETAILS: Mask difficulty assessment: easy mask Final airway type: video laryngoscope Laryngeal Manipulation: no Final best view of glottic structures - Cormack/Lehane Score: grade 1 ETT location: oral VL device: glide scope [place] scope blade size: 4 Tube size: 7 ETT distance at teeth/gum: 20 Oral tube type: standard ETT Cuffed: yes Leak Test Performed: no Number of attempt to successful placement: 1 Airway confirmation: bilateral breath sounds, positive ETCO2 and bilateral chest rise Other previous techniques attempted: none PRE PROCEDURE DETAILS: Pre evaluation for airway management: procedure Urgency: elective Preop assessment of probable difficulty: no difficulty anticipated Preoxygenation: bag valve mask SEDATION / ANESTHESIA Anesthesia method: anesthesia POST PROCEDURE DETAILS: Procedure outcome: successful Notable Events: no complications us Kirsty Rose D.O. ANESTHESIA ORDERABLES Final Result * (ABNORMAL) Basic Metabolic Panel (09/02/2024 5:29 AM CDT) Potassium, S 5.1 3.6 - 5.2 mmol/L 09/02/2024 7:39 AM CDT DTL Sodium, S 138 135 - 145 mmol/L 09/02/2024 7:39 AM CDT DTL Chloride, S 100 98 - 107 mmol/L 09/02/2024 7:39 AM CDT DTL Bicarbonate, S 28 22 - 29 mmol/L 09/02/2024 7:39 AM CDT DTL Anion Gap 10 7 - 15 09/02/2024 7:39 AM CDT DTL BUN (Blood Urea Nitrogen), S 7(L) 8 - 24 mg/dL 09/02/2024 7:39 AM CDT DTL Creatinine 0.69(L) 0.74 - 1.35 mg/dL 09/02/2024 7:39 AM CDT DTL Estimated GFR (eGFR) >90 >=60 mL/min/BSA 09/02/2024 7:39 AM CDT DTL Comment: Estimated GFR calculated using the 2020 CKD_EPI creatinine equation. Calcium, Total, S 9.1 8.6 - 10.0 mg/dL 09/02/2024 7:39 AM CDT DTL Glucose, S 95 70 - 140 mg/dL 09/02/2024 7:39 AM CDT DTL Blood (Blood, Venous) 09/02/2024 5:29 AM CDT 09/02/2024 6:06 AM CDT us Herberth Uriarte M.D. LAB BLOOD ADD-ON Final Resul t [facility] [place] [address] [place] [address], [facility] DTL [facility] [address] [place] [address] from Last 3 Months or Most Recently Relevant to Health Maintenance Insurance [facility] Advance Directives For more information, please contact: [phone] * Full Code (Latest Code Status on File) Date Activated Date Inactivated Comments 08/30/2024 10:54 PM 09/02/2024 6:55 PM Question Answer Comments Full Code: Not Discussed Due to: Patient not available * Full Code Date Activated Date Inactivated Comments 08/30/2024 11:09 AM 08/30/2024 10:54 PM Question Answer Comments Full Code: Discussed Care Teams Director Organizational Relationship Specialty Start Date End Date Elsewhere, Pcp PCP - General Internal Medicine 08/30/24
[2024-12-16 17:16] LABS: HCO3 VBG 24 mmol/L (21-28); PCO2 VBG 49 mmHG (40-50); PO2 VBG < 30.1 mmHG (25-47); pH VBG 7.299 (7.32-7.43)
[2024-12-16] MEDS: TENECTEPLASE 5 MG/ML inj 30 MG IVP (17:22)
[2024-12-16 17:28] VITALS: PULSE 101; RESP 41; O2SAT 67
[2024-12-16 17:30] VITALS: RESP 10
[2024-12-16 17:31] VITALS: BP 155/144; RESP 17
[2024-12-16 17:32] VITALS: BP 75/20; PULSE 102; RESP 101; O2SAT 80
[2024-12-16 17:36] VITALS: BP 152/83; RESP 6
--- NOTE | 2024-12-16 17:36 | ED.GENADULT ---
HPI - General Adult General Chief complaint: Cardiac Arrest/CPR <Rosi Adhikari MD - Last Filed: 12/17/24 12:24> Stated complaint: Heart attack <Rosi Adhikari MD - Last Filed: 12/17/24 12:24> Time Seen by Provider: 12/16/24 17:36 <Rosi Adhikari MD - Last Filed: 12/17/24 12:24> History of Present Illness HPI narrative: This patient is brought in by a private vehicle by a friend who reported that he was not feeling well and so he got him in his vehicle to take him home but very soon after getting into the vehicle the patient collapsed and was unresponsive. The private vehicle arrived out front of our emergency department and Dr. Quiñones when out to see that he was unresponsive and pale extremeties, face purplish pale discoloration with no pulse and not breathing. He was brought in immediately while doing CPR. The patient does have a wrist band that states his name and family members. His friend states that he is an avid bicycle rider. He also had a significant surgery a couple months ago for cancer. The patient is in his bike riding apparel and had just finished riding bike and began to feel poorly. <Rosi Adhikari MD - Last Filed: 12/17/24 12:24> This patient is brought in by a private vehicle by a friend who reported that he was not feeling well and so he got him in his vehicle to take him home but very soon after getting into the vehicle the patient collapsed and was unresponsive. The private vehicle arrived out front of our emergency department and Dr. Emelia Padilla when out to see that he was unresponsive and pale with no pulse. He was brought in immediately while doing CPR. The patient does have a wrist band that states his name and family members. His friend states that he is an avid bicycle rider. He also had a significant surgery a couple months ago for cancer. The patient is in his bike riding apparel and had just finished riding bike and began to feel poorly. <David Potts MD - Last Filed: 12/16/24 22:41> Related Data Home medications: Home Medications ?Medication ?Instructions ?Recorded ?Confirmed ibuprofen 200 mg capsule 400 mg PO Q6-8H PRN 08/03/22 07/04/24 Previous Rx's ?Medication ?Instructions ?Recorded albuterol sulfate 90 mcg/actuation 2 puff inhalation Q4-6H PRN 08/17/23 aerosol inhaler shortness of breath or wheezing #8.5 grams hydrocodone 5 mg-acetaminophen 325 1 tab PO Q6H PRN pain #10 tabs 06/06/24 mg tablet sennosides 8.6 mg capsule (senna) 8.6 mg PO DAILY PRN constipation 06/06/24 #90 caps amlodipine 5 mg tablet 5 mg PO DAILY #90 tabs 12/02/24 finasteride 5 mg tablet 5 mg PO QDAY #90 tabs 12/02/24 <Rosi Adhikari MD - Last Filed: 12/17/24 12:24> Allergies/adverse reactions: Allergies Allergy/AdvReac Type Severity Reaction Status Date / Time erythromycin base Allergy Unknown Verified 07/04/24 13:47 <Rosi Adhikari MD - Last Filed: 12/17/24 12:24> Review of Systems Status of ROS: Reports: unobtainable due to medical condition <David Potts MD - Last Filed: 12/16/24 22:41> Narrative: Unable to obtain due to cardiac arrest. <David Potts MD - Last Filed: 12/16/24 22:41> [facility] Medical History: Medical History Left inguinal hernia ?K40.90 - Unilateral inguinal hernia, without obstruction or gangrene, not specified as recurrent (ICD-10) BPH (benign prostatic hyperplasia) ?N40.0 - Benign prostatic hyperplasia without lower urinary tract symptoms (ICD-10) Exercise-induced asthma ?J45.990 - Exercise induced bronchospasm (ICD-10) HTN (hypertension) ?I10 - Essential (primary) hypertension (ICD-10) <Rosi Adhikari MD - Last Filed: 12/17/24 12:24> Surgical History: Surgical History H/O hand surgery (~2002) ?Z98.890 - Other specified postprocedural states (ICD-10) <Rosi Adhikari MD - Last Filed: 12/17/24 12:24> Social History: Social History What is your current living situation?: I presently have a place to live Problems where you live: no known problems In the past 12 months, utilities in danger of being shut off: no In past 12 months, lack of transportation kept you from medical appts, meetings, work, or getting things needed for daily living: no In the past 12 mos, have been you worried that your food would run out before you had money to buy more?: never true In the past 12 mos, the food you bought just didn't last and you didn't have money to buy more?: never true Smoking Status: Never smoker How often do you have a drink containing alcohol: 4 or more times a week How many standard drinks containing alcohol do you have on a typical day: 3 or 4 AUDIT-C Alcohol total score: 5 Non-prescribed substance use: denies use Caffeine: Yes (coffee) How often does anyone, including family, friends and others, physically hurt you: never How often does anyone, including family, friends and others, insult or talk down to you: never How often does anyone, including family, friends and others, threaten you with harm: never How often does anyone, including family, friends and others, scream or curse at you: never <Rosi Adhikari MD - Last Filed: 12/17/24 12:24> Exam Narrative: Exam Narrative: Constitutional: Unresponsive with dusky appearance and pupils fixed and dilated. HEENT: Normocephalic, atraumatic. Neck: No sign of injury. Heart: No pulse. Lungs: No spontaneous respirations. Abdomen: Surgical scar across the upper abdomen from a surgery apparently about 2 months ago. Genitalia: Deferred. Extremities: No injury. Skin: Intact. Dusky mottled appearance. Neurologic: Pupils fixed and dilated. No responses. Nursing notes and vitals signs are reviewed. <David Potts MD - Last Filed: 12/16/24 22:41> Const: Vital Signs, click to edit/add: Vital Signs - 24 hr 12/16/24 17:28 12/16/24 17:30 12/16/24 17:31 Pulse Rate 101 H Respiratory Rate 41 H 10 L 17 Blood Pressure 155/144 H Pulse Oximetry 67 L Oxygen Delivery Me thod 12/16/24 17:32 12/16/24 17:36 12/16/24 17:39 Pulse Rate 102 H Respiratory Rate 101 H 6 L Blood Pressure 75/20 L 152/83 H 158/134 H Pulse Oximetry 80 L Oxygen Delivery Me thod 12/16/24 17:53 Pulse Rate Respiratory Rate Blood Pressure Pulse Oximetry Oxygen Delivery Me thod Intubated <Rosi Adhikari MD - Last Filed: 12/17/24 12:24> Vital Signs, click to edit/add: Vital Signs - 24 hr 12/16/24 17:28 12/16/24 17:30 12/16/24 17:31 Pulse Rate 101 H Respiratory Rate 41 H 10 L 17 Blood Pressure 155/144 H Pulse Oximetry 67 L Oxygen Delivery Me thod 12/16/24 17:32 12/16/24 17:36 12/16/24 17:39 Pulse Rate 102 H Respiratory Rate 101 H 6 L Blood Pressure 75/20 L 152/83 H 158/134 H Pulse Oximetry 80 L Oxygen Delivery Me thod 12/16/24 17:53 Pulse Rate Respiratory Rate Blood Pressure Pulse Oximetry Oxygen Delivery Me thod Intubated <David Potts MD - Last Filed: 12/16/24 22:41> Documenting provider has reviewed patient's vital signs: yes <Rosi Adhikari MD - Last Filed: 12/17/24 12:24> Course Vital Signs Vital signs: Initial Vital Signs Pulse Rate 101 H 12/16/24 17:28 Respiratory Rate 41 H 12/16/24 17:28 Pulse Oximetry 67 L 12/16/24 17:28 Vital Signs Pulse Rate 101 H 12/16/24 17:28 Respiratory Rate 41 H 12/16/24 17:28 Pulse Oximetry 67 L 12/16/24 17:28 Pulse Rate 102 H 12/16/24 17:32 Respiratory Rate 6 L 12/16/24 17:36 Blood Pressure 158/134 H 12/16/24 17:39 Pulse Oximetry 80 L 12/16/24 17:32 Oxygen Delivery Method Intubated 12/16/24 17:53 <Rosi Adhikari MD - Last Filed: 12/17/24 12:24> Initial Vital Signs Pulse Rate 101 H 12/16/24 17:28 Respiratory Rate 41 H 12/16/24 17:28 Pulse Oximetry 67 L 12/16/24 17:28 Vital Signs Pulse Rate 101 H 12/16/24 17:28 Respiratory Rate 41 H 12/16/24 17:28 Pulse Oximetry 67 L 12/16/24 17:28 Pulse Rate 102 H 12/16/24 17:32 Respiratory Rate 6 L 12/16/24 17:36 Blood Pressure 158/134 H 12/16/24 17:39 Pulse Oximetry 80 L 12/16/24 17:32 Oxygen Delivery Method Intubated 12/16/24 17:53 <David Potts MD - Last Filed: 12/16/24 22:41> Medications Administered Medications: Discontinued Medications Generic Name Dose Route Start Last Admin Trade Name Freq PRN Reason Stop Dose Admin Epinephrine HCl 1 mg 12/16/24 18:17 12/16/24 17:11 Epinephrine 0.1 Mg/Ml Syringe IVP 12/16/24 18:18 1 mg ONCE ONE Administration Epinephrine HCl 1 mg 12/16/24 18:18 12/16/24 17:12 Epinephrine 0.1 Mg/Ml Syringe IVP 12/16/24 18:19 1 mg ONCE ONE Administration Epinephrine HCl 1 mg 12/16/24 18:18 12/16/24 17:15 Epinephrine 0.1 Mg/Ml Syringe IVP 12/16/24 18:19 1 mg ONCE ONE Administration Epinephrine HCl 1 mg 12/16/24 18:19 12/16/24 17:25 Epinephrine 0.1 Mg/Ml Syringe IVP 12/16/24 18:20 1 mg ONCE ONE Administration Tenecteplase 30 mg 12/16/24 18:17 12/16/24 17:22 Tenecteplase 5 Mg/Ml Inj IVP 12/16/24 18:18 30 mg ONCE ONE Administration <Rosi Adhikari MD - Last Filed: 12/17/24 12:24> Discontinued Medications Generic Name Dose Route Start Last Admin Trade Name Mira PRN Reason Stop Dose Admin Epinephrine HCl 1 mg 12/16/24 18:17 12/16/24 17:11 Epinephrine 0.1 Mg/Ml Syringe IVP 12/16/24 18:18 1 mg ONCE ONE Administration Epinephrine HCl 1 mg 12/16/24 18:18 12/16/24 17:12 Epinephrine 0.1 Mg/Ml Syringe IVP 12/16/24 18:19 1 mg ONCE ONE Administration Epinephrine HCl 1 mg 12/16/24 18:18 12/16/24 17:15 Epinephrine 0.1 Mg/Ml Syringe IVP 12/16/24 18:19 1 mg ONCE ONE Administration Epinephrine HCl 1 mg 12/16/24 18:19 12/16/24 17:25 Epinephrine 0.1 Mg/Ml Syringe IVP 12/16/24 18:20 1 mg ONCE ONE Administration Tenecteplase 30 mg 12/16/24 18:17 12/16/24 17:22 Tenecteplase 5 Mg/Ml Inj IVP 12/16/24 18:18 30 mg ONCE ONE Administration <David Potts MD - Last Filed: 12/16/24 22:41> Medical Decision Making MDM Narrative Medical decision making narrative: This patient comes in unresponsive. He was initially evaluated out in a pickup truck that brought him to the front entrance. He had no pulse and was not breathing. He was placed on a gurney and CPR was immediately started. He arrived at 5:04 p.m. and his friend who brought him here stated that it was probably 10 minutes or less since the patient collapsed. Prior to this he was stating that he was not feeling well but he was able to ambulate into the pickup and did report some lightheadedness before he collapsed. The patient's was contacted and she is coming from the [facility] and was not present here throughout the course of the code blue proceedings. The patient was very quickly intubated on arrival. Dr. Delgado performed the intubation and assisted with this code blue resuscitation attempt. I did assess cardiac function early on with ultrasound and saw asystole. There was absolutely no heart activity. Throughout the course of the code repeated ultrasound views of the heart were obtained with the Aveillant machine turned off and there was absolutely no cardiac activity in any of these views. The patient had an IV placed and did receive epinephrine 1 mg. The 1st dose occurred at 5:08 p.m.. A 2nd 1 at 5:12 p.m. and 3rd 1 at 5:15 p.m. and the final dose at 5:25 p.m.. The patient continued in asystole and was having trouble maintaining good oximetry. Very quickly after being intubated he started to have some congestion in his tube and this became mohit blood after several minutes. This required frequent suction. With the bag-valve mask and intubation he was maintaining around 80% oximetry with the Enrique machine operating. EKG showed an undetermined rhythm which is consistent with asystole. The patient did not have a shockable rhythm. H's and T's were considered as possible causes for his sudden cardiac arrest. Seems that he may have had a pulmonary event such as a massive pulmonary embolism. He is an avid biker and 1 could assume that his heart was relatively healthy. He did have cancer and a large surgery scar across his upper abdomen that was from a surgery a couple months ago. His cancer and recent surgery risk can place him at risk for pulmonary embolism event. After about 20 minutes into the code patient did receive 30 mg of tenecteplase given the possibility of a blood clot. He was understandably bleeding into the intubation tube and this would worsen with thrombolytics as it in fact did. There was no response with any of the treatments provided. He continued in asystole throughout the course of the code. At 5:35 p.m. I called off the code and pronounced him . The patient's mother and son and [id number] arrived and I informed of the very sad news. Time spent in critical care of this patient was 60 minutes. <David Potts MD - Last Filed: 12/16/24 22:41> Lab Data Lab results reviewed: Yes I reviewed the patient's lab results <Rosi Adhikari MD - Last Filed: 12/17/24 12:24> Labs: Lab Results 12/16/24 12/16/24 Range/Units 17:09 17:10 WBC 11.65 H (4.50-11.00) K/uL RBC 4.93 (4.30-5.90) m/uL Hgb 14.9 (13.5-17.5) gm/dL Hct 46.3 (37.0-53.0) % MCV 94 (80-100) fL MCH 30 (26-34) pg MCHC 32 (32-36) gm/dL RDW Coeff of Margaux 13.0 (11.5-15.5) % Plt Count 344 (140-440) K/uL Neut % (Auto) 72.7 H (42.0-72.0) % Lymph % (Auto) 19.3 L (20-44) % [place] % (Auto) 6.9 (0.0-11.0) % Eos % (Auto) 0.4 (0.0-7.0) % Baso % (Auto) 0.5 (0.0-3.0) % Neut # (Auto) 8.50 H (1.7-7.0) K/uL Lymph # (Auto) 2.20 (0.90-2.90) K/uL [place] # (Auto) 0.80 (0.00-0.90) K/UL Eos # (Auto) 0.00 (0.00-0.50) K/uL Baso # (Auto) 0.10 (0.00-0.30) K/uL Abs Immat Gran (auto) 0.00 (0.00-0.30) K/uL Imm/Tot Granulo (auto) 0.2 % VBG pH 7.299 L (7.32-7.43) VBG pCO2 49 (40-50) mmHG VBG pO2 < 30.1 (25-47) mmHG VBG HCO3 24 (21-28) mmol/L Sodium 141 (135-149) mmol/L Potassium 3.7 (3.6-5.1) mmol/L Chloride 103 (96-114) mmol/L Carbon Dioxide 23 (20-32) mmol/L Anion Gap 15 (7-15) mEq/L BUN 11 (7-30) mg/dL Creatinine 0.9 (0.5-1.5) mg/dL Estimated GFR 99 ml/min Glucose 103 (60-115) mg/dL Lactate 7.1 H* (0.5-1.9) mmol/L Calcium 9.6 (8.4-10.6) mg/dL Total Bilirubin 0.6 (0.1-1.5) mg/dL AST 54 H (12-35) U/L ALT 19 (4-50) U/L Alkaline Phosphatase 81 (40-150) U/L Troponin I 0.01 (0.01-0.04) ng/mL Total Protein 7.8 (6.0-8.3) g/dL Albumin 4.6 (3.3-5.0) g/dL POC Glucose 168 H (60-115) mg/dl <Rosi Adhikari MD - Last Filed: 12/17/24 12:24> Lab Results 12/16/24 12/16/24 Range/Units 17:09 17:10 WBC 11.65 H (4.50-11.00) K/uL RBC 4.93 (4.30-5.90) m/uL Hgb 14.9 (13.5-17.5) gm/dL Hct 46.3 (37.0-53.0) % MCV 94 (80-100) fL MCH 30 (26-34) pg MCHC 32 (32-36) gm/dL RDW Coeff of Margaux 13.0 (11.5-15.5) % Plt Count 344 (140-440) K/uL Neut % (Auto) 72.7 H (42.0-72.0) % Lymph % (Auto) 19.3 L (20-44) % [place] % (Auto) 6.9 (0.0-11.0) % Eos % (Auto) 0.4 (0.0-7.0) % Baso % (Auto) 0.5 (0.0-3.0) % Neut # (Auto) 8.50 H (1.7-7.0) K/uL Lymph # (Auto) 2.20 (0.90-2.90) K/uL [place] # (Auto) 0.80 (0.00-0.90) K/UL Eos # (Auto) 0.00 (0.00-0.50) K/uL Baso # (Auto) 0.10 (0.00-0.30) K/uL Abs Immat Gran (auto) 0.00 (0.00-0.30) K/uL Imm/Tot Granulo (auto) 0.2 % VBG pH 7.299 L (7.32-7.43) VBG pCO2 49 (40-50) mmHG VBG pO2 < 30.1 (25-47) mmHG VBG HCO3 24 (21-28) mmol/L Sodium 141 (135-149) mmol/L Potassium 3.7 (3.6-5.1) mmol/L Chloride 103 (96-114) mmol/L Carbon Dioxide 23 (20-32) mmol/L Anion Gap 15 (7-15) mEq/L BUN 11 (7-30) mg/dL Creatinine 0.9 (0.5-1.5) mg/dL Estimated GFR 99 ml/min Glucose 103 (60-115) mg/dL Lactate 7.1 H* (0.5-1.9) mmol/L Calcium 9.6 (8.4-10.6) mg/dL Total Bilirubin 0.6 (0.1-1.5) mg/dL AST 54 H (12-35) U/L ALT 19 (4-50) U/L Alkaline Phosphatase 81 (40-150) U/L Troponin I 0.01 (0.01-0.04) ng/mL Total Protein 7.8 (6.0-8.3) g/dL Albumin 4.6 (3.3-5.0) g/dL POC Glucose 168 H (60-115) mg/dl <David Potts MD - Last Filed: 12/16/24 22:41> ECG Data Attestation: I personally reviewed and interpreted this ECG as follows: <David Potts MD - Last Filed: 12/16/24 22:41> Interpretation: Undetermined rhythm. Asystole. <David Potts MD - Last Filed: 12/16/24 22:41> Critical Care Time Critical Care Time Total Critical Care Time in Minutes: 60 <David Potts MD - Last Filed: 12/16/24 22:41> Discharge Plan Discharge Clinical Impression: Cardiac arrest <Rosi Adhikari MD - Last Filed: 12/17/24 12:24> Patient Disposition: <Rosi Adhikari MD - Last Filed: 12/17/24 12:24> Date/Time: 12/16/24 17:35 <Rosi Adhikari MD - Last Filed: 12/17/24 12:24> Probable Cause of Probable Cause of : Cardiac arrest <Rosi Adhikari MD - Last Filed: 12/17/24 12:24> Cardiac arrest <David Potts MD - Last Filed: 12/16/24 22:41> Procedures ABG Interpretation ABG Results: 12/16/24 17:10 VBG pH 7.299 L VBG pCO2 49 VBG pO2 < 30.1 VBG HCO3 24 <Rosi Adhikari MD - Last Filed: 12/17/24 12:24> 12/16/24 17:10 VBG pH 7.299 L VBG pCO2 49 VBG pO2 < 30.1 VBG HCO3 24 <David Potts MD - Last Filed: 12/16/24 22:41> Intubation Pre procedure diagnosis: Cardiac arrest <Rosi Adhikari MD - Last Filed: 12/17/24 12:24> Post procedure diagnosis: Same <Rosi Adhikari MD - Last Filed: 12/17/24 12:24> Site marking: not applicable <Rosi Adhikari MD - Last Filed: 12/17/24 12:24> Name of person performing procedure: Rosi Adhikari <Rosi Adhikari MD - Last Filed: 12/17/24 12:24> Sedative: none <Rosi Adhikari MD - Last Filed: 12/17/24 12:24> paralytic: other (No paralytic required) <Rosi Adhikari MD - Last Filed: 12/17/24 12:24> Laryngoscope: fiber optic video scope <Rosi Adhikari MD - Last Filed: 12/17/24 12:24> ET Tube Size: 7 <Rosi Adhikari MD - Last Filed: 12/17/24 12:24> ET Tube Uncuffed: No <Rosi Adhikari MD - Last Filed: 12/17/24 12:24> Tube Secured Depth (cm): 25 (At corner of mouth) <Rosi Adhikari MD - Last Filed: 12/17/24 12:24> Tube Secured Location: lips <Rosi Adhikari MD - Last Filed: 12/17/24 12:24> Tube Placement Confirmation: visualized tube passing through cords, equal breath sounds bilaterally and no breath sounds over epigastrium <Rosi Adhikari MD - Last Filed: 12/17/24 12:24> Estimated blood loss (if any): none <Rosi Adhikari MD - Last Filed: 12/17/24 12:24> Additional Comments: Patient arrived via car, his friend came in to get us. We found him in the car, no pulse no breathing, I assisted in a logger's lift to get him to the ER gurney. I assisted with compressions of his chest until we got into the stabilization room. Patient had no spontaneous respiratory effort and I was able to perform intubation without any difficulty. Throughout his course here, either myself or Dr. Potts did listen for bilateral lung sounds. He was hypoxic despite intubation, blood did start coming out of the ET tube shortly after intubation, this was not felt to be difficult or traumatic at all. Eventually we did get a post intubation film but near towards the end of the code, this did show ongoing good tube placement but there was significant infiltrates. I do wonder if patient had a significant pulmonary assault like massive PE. Both Dr. Potts and myself were in attendance. <Rosi Adhikari MD - Last Filed: 12/17/24 12:24>
[2024-12-16 17:39] VITALS: BP 158/134
[2024-12-16 17:46] LABS: Hematocrit 46.3 % (37.0-53.0); Hemoglobin* 14.9 gm/dL (13.5-17.5); Immature Granulocytes Pct Auto 0.2 %; Mean Corpuscular HGB Conc 32 gm/dL (32-36); Mean Corpuscular Hemoglobin 30 pg (26-34); Mean Corpuscular Volume 94 fL (80-100); RDW Coefficient of Variation % 13.0 % (11.5-15.5); Red Blood Count 4.93 m/uL (4.30-5.90); White Blood Count* 11.65 K/uL (4.50-11.00)
[2024-12-16 17:47] LABS: Lactate* 7.1 mmol/L (0.5-1.9)
[2024-12-16 17:48] LABS: Albumin* 4.6 g/dL (3.3-5.0); Chloride* 103 mmol/L (96-114); Immature Granulocytes Abs Auto 0.00 K/uL (0.00-0.30); Lymphocytes Absolute Auto 2.20 K/uL (0.90-2.90); Potassium* 3.7 mmol/L (3.6-5.1); Slide Review Reflex No; Sodium* 141 mmol/L (135-149)
[2024-12-16 17:51] LABS: Alanine Aminotransferase* 19 U/L (4-50); Alkaline Phosphatase* 81 U/L (40-150); Anion Gap 15 mEq/L (7-15); Aspartate Amino Transferase* 54 U/L (12-35); Bilirubin Total* 0.6 mg/dL (0.1-1.5); Blood Urea Nitrogen* 11 mg/dL (7-30); Carbon Dioxide* 23 mmol/L (20-32); Creatinine* 0.9 mg/dL (0.5-1.5); Estimated Glomerular Filt Rate 99 ml/min; Total Protein* 7.8 g/dL (6.0-8.3)
[2024-12-16 17:52] LABS: Calcium* 9.6 mg/dL (8.4-10.6); Glucose* 103 mg/dL (60-115)
[2024-12-16 18:04] LABS: Glucose, Point-of-Care* 168 mg/dl (60-115)
== END 2024-12-16 23:04 | disposition expired ==
PROVIDERS: Family Medicine; Emergency Provider Emergency Medicine Emergency Medical Services; PCP Family Medicine
DX: I46.9 Cardiac arrest, cause unspecified (principal)
CPT/HCPCS: 31500; 36415; 71045; 80053; 82803; 82947; 83605; 84484; 85025; 93005; 96374; 99285; 99291; J0169; J3101